=== PATIENT | female | born 2000 | race African-American/Black ===

== ENCOUNTER 2020-03-06 14:51 | Emergency (ER) | payer BC, SELFPAY ==
--- NOTE | 2020-03-06 14:59 | ED.FEMALEGU ---
HPI - Female Genitourinary General Chief complaint: Urogenital-Female Stated complaint: POS UTI Time Seen by Provider: 03/06/20 14:59 Source: patient and RN notes reviewed History of Present Illness HPI Narrative: Patient is a 20-year-old female who presents the urgent care with complaints of a possible UTI. Patient states that she was having symptoms about a week and a half ago and was treated at her [facility] for a UTI at that time. Patient states that she had low back pain, suprapubic pressure, frequency, dysuria and was placed on Macrobid. Patient states that the Macrobid was finished on Monday and her symptoms returned a couple days ago. Patient states that she is having suprapubic pressure, urinary frequency and dysuria. Denies of any blood in the urine, nausea, vomiting, fever. Currently denies of any low back pain. Denies any vaginal discharge. Patient is sexually active but denies of any known contracted STI. No other acute complaints. No acute distress noted. Patient aware of the plan of care. Some parts of this dictation were generated by voice recognition software and may contain typographical and/or grammatical inaccuracies. Related Data Home Medications Medication Instructions Recorded Confirmed fluoxetine 03/06/20 norgestimate-ethinyl estradiol tablet 03/06/20 [Sprintec (28)] Allergies Allergy/AdvReac Type Severity Reaction Status Date / Time No Known Allergies Allergy Verified 03/06/20 15:05 Review of Systems Review of Systems: Narrative: CONSTITUTIONAL: Denies fever, chills, or sweats. EYES: Denies visual changes, redness, or discharge. ENT: Denies rhinorrhea, congestion, sore throat, or otalgia. CARDIOVASCULAR: Denies chest pain, palpitations, or edema. RESPIRATORY: Denies cough or dyspnea. GASTROINTESTINAL: Denies abdominal pain, nausea, vomiting, or diarrhea. GENITOURINARY: Reports of dysuria, suprapubic pressure, urinary frequency SKIN: Denies rash or itching. MUSCULOSKELETAL: Denies back pain, joint pain, or myalgia. NEUROLOGIC: Denies headache, numbness, or weakness. All other systems reviewed are negative, except as documented in HPI. PMFSH Comments At the time of my signature, I reviewed and agree with the nursing past medical, surgical, social, and family history. There is no relevant family history pertinent to the patient complaint. Exam Narrative: Exam Narrative: GENERAL: This is a well-nourished, well-developed patient, in no apparent distress. HEAD: normocephalic, atraumatic. EYES: PERRL. Sclera clear/white. Vision is grossly intact. EARS: External ears normal NOSE: External nose normal with no obvious nasal discharge, nares without redness, no rhinorrhea. THROAT: Mucous membranes moist NECK: Neck supple GASTROINTESTINAL: Abdomen soft, mild suprapubic tenderness, nondistended. SKIN: warm, intact with no suspicious lesions or rash, good texture and turgor. NEURO: awake, alert, and oriented to person, place and time. There were no obvious focal neurologic abnormalities. EXTREMITIES: No clubbing, cyanosis, or edema. BACK: Negative bilateral CVA tenderness Course Vital Signs Vital signs: Vital Signs Temperature 97.4 F L 03/06/20 15:02 Pulse Rate 92 03/06/20 15:02 Respiratory Rate 16 03/06/20 15:02 Blood Pressure 141/70 H 03/06/20 15:02 Pulse Oximetry 100 03/06/20 15:02 Temperature 97.4 F L 03/06/20 15:02 Pulse Rate 92 03/06/20 15:02 Respiratory Rate 16 03/06/20 15:02 Blood Pressure 141/70 H 03/06/20 15:02 Pulse Oximetry 100 03/06/20 15:02 Reviewed-patient is informed that they may have pre-hypertension or hypertension based on a blood pressure reading in the department. I recommend the patient call the primary care provider listed on their discharge instructions or a physician of their choice this week to arrange follow-up for further evaluation of possible pre-hypertension or hypertension. MDM - Female Genitourinary MDM
[2020-03-06 15:02] VITALS: BP 141/70; PULSE 92; RESP 16; TEMP 36.3; O2SAT 100
== END 2020-03-06 15:38 | disposition home or self-care (01) ==
PROVIDERS: Emergency Provider Nurse Practitioner Family
DX: N39.0 Urinary tract infection, site not specified (principal)
CPT/HCPCS: 81003; 87086; 87088; 87491; 87591; 87661; 99214; G0463